=== PATIENT | male | born 1955 | race Caucasian/White ===

== ENCOUNTER 2021-10-27 14:59 | Emergency (ER) | payer MEDICARE, OTHER ==
[~2021-10-27 14:59] MED LIST: BENA40TA89 PO; COR25 PO; FOLI-43 PO; GLYB1TAB3 PO; INDA2.5T5 PO; LIP20 PO; SOUR1000 PO
== END 2021-10-27 15:07 | disposition left against medical advice (07) ==
LOC: SED 14:59
DX: M25.561 Pain in right knee (principal); Z53.21 Procedure and treatment not carried out due to patient leaving prior to being seen by health care provider

== ENCOUNTER 2021-12-30 19:06 | Emergency (ER) | payer MEDICARE ==
[~2021-12-30] VITALS: Ht 167.6 cm; Wt 108.9 kg
--- NOTE | 2021-12-30 19:22 | NUR ---
Patient to ER bed 08 to gown for evaluation. Side rails up.
[2021-12-30 19:23] VITALS: BP_SYST 146
--- NOTE | 2021-12-30 19:31 | NUR ---
42 YR OLD AOX4, AMBULATORY MALE WITH COMPLAINT OF RIGHT ARM PAIN 7/10 DUE TO SMASHING IT ABOUT 1 HOUR AGO. PT HAS NO OPEN SKIN. MD AT THE BEDSIDE FOR EVALUATION, WILL MONITOR NEEDED
--- NOTE | 2021-12-30 19:58 | NUR ---
pt at xray at this time
[2021-12-30] MEDS ORDERED: HYDR-3917 PO (20:45)
--- NOTE | 2021-12-30 21:13 | NUR ---
Patient given written and verbal discharge instructions and verbalizes understanding. ER MD discussed with patient the results and treatment provided. Patient in stable condition. ID arm band removed. IV catheter removed intact and dressing applied, no active bleeding. Rx of NORCO given. Patient educated on pain management and to follow up with PMD. Pain Scale . Opportunity for questions provided and answered. Medication side effect fact sheet provided. PTdischarged with all belongings in stable condition
[2021-12-30] MEDS ORDERED: HYDROcodone/ACETAMIN 7.5-325 MG TAB PO ONE (21:15)
== END 2021-12-30 21:14 | disposition home or self-care (01) ==
LOC: SED 19:06
DX: S50.11XA Contusion of right forearm, initial encounter (principal); I10 Essential (primary) hypertension; E11.9 Type 2 diabetes mellitus without complications; W23.1XXA Caught, crushed, jammed, or pinched between stationary objects, initial encounter; Y93.89 Activity, other specified; Y92.89 Other specified places as the place of occurrence of the external cause; Y99.8 Other external cause status
CPT/HCPCS: 73090; 99283